=== PATIENT | female | born 1965 | race Caucasian/White ===

== ENCOUNTER 2018-06-06 12:54 | Outpatient (CLI) | payer OTHER | END 2018-06-06 12:56 | disposition home or self-care (01) | LOC: SONOGRAMA 12:54 → MAMO-SONO 13:15 | DX: R10.2 Pelvic and perineal pain (principal); R10.0 Acute abdomen ==

== ENCOUNTER 2019-07-16 15:32 | Emergency (ER) | payer OTHER ==
[~2019-07-16] VITALS: Ht 154.9 cm; Wt 59.4 kg
[2019-07-16] MEDS ORDERED: ZYRTEC (15:53)
[2019-07-16] MEDS ORDERED: LEVOTHYROXINE25 MCG (15:53)
== END 2019-07-16 16:40 | disposition home or self-care (01) ==
LOC: ER 15:32
DX: R06.02 Shortness of breath (principal); F41.8 Other specified anxiety disorders

== ENCOUNTER 2022-11-02 09:48 | Outpatient (CLI) | payer OTHER ==
[~2022-11-02 09:48] MED LIST: LEVOTHYROXINE25 MCG; ZYRTEC
== END 2022-11-02 09:59 | disposition home or self-care (01) ==
LOC: MAMO-SONO 09:48
PROVIDERS: ATTEND Internal Medicine
DX: N60.12 Diffuse cystic mastopathy of left breast (principal); Z12.31 Encounter for screening mammogram for malignant neoplasm of breast; E03.9 Hypothyroidism, unspecified; G62.9 Polyneuropathy, unspecified

== ENCOUNTER 2023-03-13 09:10 | Outpatient (CLI) | payer OTHER ==
[2023-03-13 10:41] LABS: HEMATOCRIT 39.5 % (36.0-45.00); HEMOGLOBIN 13.4 g/dL (12.0-15.00); PLATELET COUNT 293 K/uL (150-450); RED BLOOD COUNT 4.34 M/uL (4.00-6.00)
[2023-03-13 11:21] LABS: CALCIUM 9.5 mg/dL (8.5-10.1); CREATININE SERUM 0.99 mg/dL (0.55-1.02); GFR 57.81; POTASSIUM 4.28 mEq/L (3.5-5.1); T4 TOTAL 6.82 UG/DL (4.8-13.9); TSH 1.47 uIU/mL (0.358-3.74)
[2023-03-14 12:07] LABS: FOLLICLE STIMULATING HORMONE 14.8 mIU/mL (.); LEUTEINIZING HORMONE 16.1 mIU/mL (.)
== END 2023-03-13 14:30 | disposition home or self-care (01) ==
LOC: LAB 09:10
PROVIDERS: ATTEND Internal Medicine
DX: Z01.810 Encounter for preprocedural cardiovascular examination (principal); I10 Essential (primary) hypertension; M54.59 Other low back pain; E03.9 Hypothyroidism, unspecified; G62.9 Polyneuropathy, unspecified; Z12.31 Encounter for screening mammogram for malignant neoplasm of breast

== ENCOUNTER 2023-11-21 11:35 | Outpatient (CLI) | payer OTHER | END 2023-11-21 11:54 | disposition home or self-care (01) | LOC: MAMO-SONO 11:35 | PROVIDERS: ATTEND Obstetrics & Gynecology | DX: N60.11 Diffuse cystic mastopathy of right breast (principal); N60.12 Diffuse cystic mastopathy of left breast; Z12.39 Encounter for other screening for malignant neoplasm of breast; Z12.31 Encounter for screening mammogram for malignant neoplasm of breast ==

== ENCOUNTER 2024-11-21 11:33 | Outpatient (CLI) | payer OTHER | END 2024-11-21 11:42 | disposition home or self-care (01) | LOC: MAMO-SONO 11:33 | PROVIDERS: ATTEND Obstetrics & Gynecology | DX: N60.11 Diffuse cystic mastopathy of right breast (principal); N60.12 Diffuse cystic mastopathy of left breast; Z12.31 Encounter for screening mammogram for malignant neoplasm of breast ==

== ENCOUNTER 2024-12-04 10:12 | Outpatient (CLI) | payer OTHER | END 2024-12-04 10:21 | disposition home or self-care (01) | LOC: SONOGRAMA 10:12 | PROVIDERS: ATTEND Obstetrics & Gynecology | DX: R10.2 Pelvic and perineal pain (principal) ==